=== PATIENT | male | born 1940 | race Caucasian/White ===

== ENCOUNTER 2019-12-07 14:22 | Emergency (ER) | payer OTHER ==
[~2019-12-07] VITALS: Ht 162.6 cm; Wt 65.8 kg
[2019-12-07] MEDS ORDERED: TAMS0.4C (15:01)
[2019-12-07] MEDS ORDERED: GEMFIBROZIL600 MG (15:01)
[2019-12-07] MEDS ORDERED: BACLOFEN10 MG (15:02)
[2019-12-07] MEDS ORDERED: CYMBALTA60 MG (15:02)
[2019-12-07] MEDS ORDERED: LYRICA50 MG (15:02)
[2019-12-07] MEDS ORDERED: DHEA25 MG (15:03)
[2019-12-07] MEDS ORDERED: FISH OIL CONC1000 MG (15:03)
[2019-12-07] MEDS ORDERED: CO Q-1010 MG (15:03)
[2019-12-07] MEDS ORDERED: OXYCODONE HCL10 M1 (15:03)
[2019-12-07] MEDS ORDERED: [UNRECOGNIZED DRUG - OTHER] (15:04)
[2019-12-07] MEDS ORDERED: DIALYVITE 800800 MCG (15:04)
[2019-12-07] MEDS ORDERED: MAGNESIUM200 MG (15:05)
[2019-12-07] MEDS ORDERED: ADRENOID CAPSU1 EACH (15:05)
== END 2019-12-07 17:06 | disposition home or self-care (01) ==
LOC: ER 14:22
DX: S70.02XA Contusion of left hip, initial encounter (principal); W18.39XA Other fall on same level, initial encounter; Y93.11 Activity, swimming; Y92.59 Other trade areas as the place of occurrence of the external cause; Y99.8 Other external cause status